=== PATIENT | female | born 1985 | race Caucasian/White ===

== ENCOUNTER 2024-12-22 06:27 | Emergency (ER) | payer MEDICAID, SELFPAY ==
[2024-12-22] VITALS (8 sets, daily range): BP systolic 107–138; BP diastolic 67–78; PULSE 53–68; RESP 13–20; O2SAT 97–100; BMI 22.8
--- NOTE | 2024-12-22 06:34 | ED_ITS ---
HPI - General Adult 2 General: Chief complaint: Vaginal Bleeding Stated complaint: Hemorrhaging Time Seen by Provider: 12/22/24 06:29 History of Present Illness: 39-[facility]. Her last period was a couple of months ago. She complaining of back and pelvic pain. Patient is uncertain if she is at this time Associated symptoms: Reports nausea; Deny chest pain, dyspnea or rash Related Data Home Medications ?Medication ?Instructions ?Recorded ?Confirmed famotidine 20 mg tablet 20 mg PO Q12H PRN 12/22/24 0 12/22/24 indigestion/stomach upset hydroxyzine HCl 50 mg tablet 50 mg PO Q6H PRN Anxiety 12/22/24 12/22/24 loperamide 2 mg capsule See Rx Instructions .Route . COMPLEX 12/22/24 12/22/24 naproxen 500 mg tablet 500 mg PO Q12H PRN Pain 11/3012/22/24 ondansetron 4 mg disintegrating 4 mg PO Q6H PRN Nausea 12/22/24 12/22/24 tablet Previous Rx's ?Medication ?Instructions ?Recorded diclofenac sodium 75 mg 75 mg PO Q12H PRN pain #20 t abs 12/22/24 tablet,delayed release Allergies Allergy/AdvReac Type Severity Reaction Status Date / Time No Known Allergies Allergy Verified 12/22/24 06:36 Review of Systems 2 Const: Denies: fever(s) or chills Card: Denies: chest pain Resp: Denies: dyspnea GI: Reports: abdominal pain, nausea and GI cramping : Reports: vaginal bleeding and pelvic pain; Denies: dysuria, urinary frequency or urinary urgency Musc: Denies: neck pain or back pain Skin/Breast: Denies: rash Physical Exam 2 Const: ORIENTATION/CONSCIOUSNESS: Yes awake, Yes oriented to person, Yes oriented to place and Yes oriented to time HENMT: COMMON NORMALS: normocephalic, atraumatic and hearing grossly normal bilaterally HEAD & SCALP: normocephalic and atraumatic Resp: COMMON NORMALS: normal respiratory effort, No retractions, No use of accessory muscles and clear to auscultation bilaterally AUSCULTATION: clear to auscultation bilaterally Cardio: COMMON NORMALS: regular rate, regular rhythm and No murmurs present (Cardio) RATE: regular rate RHYTHM: regular rhythm GI: COMMON NORMALS: Soft to palpation and No hepatosplenomegaly present A USCULTATION: Yes normoactive bowel sounds PALPATION: Yes Soft to palpation, No Tenderness to palpation present (GI), No Guarding due to palpation present (GI) and Yes No hepatosplenomegaly present : OTHER: Patient placed in dorsolithotomy position with nurse present speculum introduced cervix visualized large amount of blood in the vaginal vault this was removed noted that there was significant tissue in the cervical os this was removed with a ring forceps which decreased bleeding substantially observed for short time no further bleeding. Extremity: COMMON NORMALS: normal to inspection, capillary refill normal, no clubbing, cyanosis or edema, no calf tenderness and no pedal edema Neuro: SENSORIUM/ORIENTATION: Yes oriented to person, Yes oriented to place and Yes oriented to time Skin: COMMON NORMALS: no rashes or lesions noted GENERAL SKIN EXAM: no rashes or lesions noted Course 2 Vital Signs: Vital signs: Vital Signs Pulse Rate 68 12/22/24 13:48 Respiratory Rate 15 12/22/24 09:00 Blood Pressure 107/78 12/22/24 13:48 Pulse Oximetry 98 12/22/24 13:48 Oxygen Delivery Me thod Room Air 12/22/24 10:30 MDM - General Adult Medical Decision Making POC removed from the os this is submitted for pathology. GC and Chlamydia were negative. Ultrasound shows pole with no cardiac activity beta-hCG at 1800 suspect missed spontaneous miscarriage. Tissue removed from the os was submitted for pathology patient did have further bleeding after was removed she was observed for time no further bleeding hemoglobin stable discharge patient home diclofenac as needed for discomfort advised her she will likely have more bleeding she should have repeat hemoglobin but hCG in 2 to 3 days at her primary care doctor after return if she has further problems. Patient was advised if bleeding is greater than 1 pad per hour to return to the emergency room Medical Records I reviewed the patient's medical records. Lab Data I reviewed the patient's lab results. 12/22/24 10:32 12/22/24 06:38 Radiology Impressions Obstetrics Ultrasound 12/22/24 07:05 IMPRESSION: 1. Single intrauterine gestation with no heart beat. Consistent with embryonic demise. 2. Suspect large subchorionic hemorrhage. Scattered heterogeneity surrounding the gestational sac. This may be due to subchorionic bleed or impending spontaneous . Laboratory Results WBC 11.80 10^3/uL (3.29-11.43) H 12/22/24 06:38 RBC 4.36 10^6/uL (3.85-5.65) 12/22/24 06:38 Hgb 12.40 g/dL (11.27-16.99) 12/22/24 10:32 Hct 38.5 % (36-47) 12/22/24 06:38 MCV 88.3 fl (85-98) 12/22/24 06:38 MCH 29.6 pg (27-33) 12/22/24 06:38 MCHC 33.5 g/dL (30-55) 12/22/24 06:38 RDW 12.5 % (12.1-15.1) 12/22/24 06:38 Plt Count 295 10^3/cmm (157-399) 12/22/24 06:38 MPV 9.8 fL (7.4-10.4) 12/22/24 06:38 Neut % (Auto) 85.3 % 12/22/24 06:38 Lymph % (Auto) 10.5 % 12/22/24 06:38 [place] % (Auto) 3.4 % 12/22/24 06:38 Eos % (Auto) 0.1 % 12/22/24 06:38 Baso % (Auto) 0.3 % 12/22/24 06:38 Neut # (Auto) 10.06 10^3/uL (1.8-7.7) H 12/22/24 06:38 Lymph # (Auto) 1.2 10^3/uL (0.8-4.8) 12/22/24 06:38 [place] # (Auto) 0.4 10^3/uL (0.2-0.9) 12/22/24 06:38 Eos # (Auto) 0.0 10^3/uL (0.0-0.8) 12/22/24 06:38 Baso # (Auto) 0.0 10^3/uL (0.0-0.1) 12/22/24 06:38 Nucleated RBC % (auto) 0 % 12/22/24 06:38 Nucleated RBCs # 0.0 /100WBC 12/22/24 06:38 Sodium 138 mmol/L (136-145) 12/22/24 06:38 Potassium 2.9 mmol/L (3.5-5.1) L 12/22/24 06:38 Chloride 102 mmol/L (98-107) 12/22/24 06:38 Carbon Dioxide 18 mmol/L (22-29) L 12/22/24 06:38 Anion Gap 20.9 (5-19) H 12/22/24 06:38 BUN 7 mg/dL (6-20) 12/22/24 06:38 Creatinine 0.5 mg/dL (0.5-0.9) 12/22/24 06:38 GFR Calculation 137.4 mL/min (90-130) H 12/22/24 06:38 Glucose 135 mg/dL (65-115) H 12/22/24 06:38 Calculated Osmolality 286 mOsm/kg (285-295) 12/22/24 06:38 Calcium 9.1 mg/dL (8.5-10.5) 12/22/24 06:38 Magnesium 1.6 mg/dL (1.7-2.3) L 12/22/24 06:38 Total Bilirubin 1.0 mg/dL (0.15-1.2) 12/22/24 06:38 AST 25 U/L (0-32) 12/22/24 06:38 ALT 30 U/L (0-33) 12/22/24 06:38 Alkaline Phosphatase 43 U/L (35-105) 12/22/24 06:38 Total Protein 8.1 g/dL (6.6-8.7) 12/22/24 06:38 Albumin 4.5 g/dL (3.5-5.2) 12/22/24 06:38 Globulin 3.6 g/dL (1.3-4.6) 12/22/24 06:38 HCG, Qual Positive (Negative) H 12/22/24 06:38 Ser , Semi-Qnt 1865.00 mIU/mL 12/22/24 06:28 Urine Color Yellow (Yellow) 12/22/24 06:59 Urine Appearance Cloudy (CLEAR) A 12/22/24 06:59 Urine pH 6.5 (5-7) 12/22/24 06:59 Ur Specific [place] 1.029 (1.005-1.030) 12/22/24 06:59 Urine Protein Trace (Negative) A 12/22/24 06:59 Urine Glucose (UA) Negative (Normal) 12/22/24 06:59 Urine Ketones 3+ (Negative) H 12/22/24 06:59 Urine Blood Negative (Negative) 12/22/24 06:59 Urine Nitrate Negative (Negative) 12/22/24 06:59 Urine Bilirubin Negative (Negative) 12/22/24 06:59 Urine Urobilinogen 1.0 mg/dL (Negative) 12/22/24 06:59 Ur Leukocyte Esterase Trace (Negative) A 12/22/24 06:59 Urine RBC 0-2 /hpf (0-2) 12/22/24 06:59 Urine WBC 11-20 /hpf (0-5) H 12/22/24 06:59 Ur Squamous Epith Cells 11-20 /hpf (0-5) H 12/22/24 06:59 Amorphous Sediment Not Reportable 12/22/24 06:59 Urine Bacteria 4+ /hpf (NONE) H 12/22/24 06:59 Hyaline Casts 22.93 /lpf 12/22/24 06:59 C. trachomatis (PCR) Not detected 12/22/24 06:59 N. gonorrhoeae (PCR) Not detected 12/22/24 06:59 Blood Type A Positive 12/22/24 06:38 Rho(D) Type Rh positive 12/22/24 06:38 Antibody Screen Negative 12/22/24 06:38 All radiology interpretation(s) finalized by discharge Discharge Plan Discharge Patient Disposition: Home Clinical Impression: Spontaneous miscarriage Condition: Stable Prescriptions: New diclofenac sodium 75 mg tablet,delayed release (DR/EC) 75 mg PO Q12H PRN (Reason: pain) Qty: 20 0RF No Action loperamide 2 mg capsule See Rx Instructions .ROUTE .COMPLEX Rx Instructions: TAKE TWO CAPSULES BY MOUTH INITIALLY, THEN TAKE ONE CAPSULE BY MOUTH AFTER EACH LOOSE STOOL UNTIL SYMPTOMS RESOLVE. DO NOT EXCEED FOUR PER DAY. hydroxyzine HCl 50 mg tablet 50 mg PO Q6H PRN (Reason: Anxiety) famotidine 20 mg tablet 20 mg PO Q12H PRN (Reason: indigestion/stomach upset) ondansetron 4 mg tablet,disintegrating 4 mg PO Q6H PRN (Reason: Nausea) naproxen 500 mg tablet 500 mg PO Q12H PRN (Reason: Pain) Discharge Orders: Discharge ED (Routine); Ordered 12/22/24 Ordered By: Dylan Matt Discharge Diet: Usual diet Discharge Activity: Increase activity as tolerated Patient Instructions: Miscarriage (ED), Opioid Safety, Pain Management Activity Restrictions/Additional Instructions: Thank you for choosing [facility] for your healthcare needs today. It is very important that you follow up as instructed or that you return to the Emergency Department should you have concerns or if your condition changes or worsens in any way. You were seen in the emergency room with vaginal bleeding. After evaluation is found that you had been and had miscarried. We did remove some products of conception from the os this should slow the bleeding and decrease the cramping. You will need to have a repeat beta hCG (hormone of ) repeated in approximately 3 days at your primary care doctor's office. If the bleeding resumes and is uncontrollable (greater than 1 pad per hour) return to the emergency room. You are given diclofenac to use as needed for abdominal pain and cramping. If you take the diclofenac do not take any naproxen Aleve ibuprofen Motrin or Advil. Finally you were noted to have a low potassium while you were in the emergency room. You were given supplement for this as well as supplement for magnesium this should be rechecked at your follow-up doctors appointment as well. 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
[2024-12-22] MEDS: tranexamic acid 1,000 MG/100 ML PREMIX 600 MG IV (06:45)
[2024-12-22] MEDS: morphine 4 mg/mL SDV 1 mL 2 MG IVP (06:48)
[2024-12-22] MEDS: ketorolac 30 mg/mL INJ IVP (06:49)
[2024-12-22 06:51] LABS: Basophils % 0.3 %; Eosinophils % 0.1 %; Hematocrit 38.5 % (36-47); Lymphocytes # 1.2 10^3/uL (0.8-4.8); Lymphocytes % 10.5 %; Mean Corpuscular HGB Conc 33.5 g/dL (30-55); Mean Corpuscular Hemoglobin 29.6 pg (27-33); Mean Corpuscular Volume 88.3 fl (85-98); Mean Platelet Volume 9.8 fL (7.4-10.4); Monocytes # 0.4 10^3/uL (0.2-0.9); Monocytes % 3.4 %; Neutrophils # 10.06 10^3/uL (1.8-7.7); Neutrophils % 85.3 %; Nucleated Red Blood Cells % 0 %; Platelet Count 295 10^3/cmm (157-399); Red Blood Count 4.36 10^6/uL (3.85-5.65); Red Cell Distribution Width 12.5 % (12.1-15.1)
[2024-12-22] MEDS: ondansetron 2 mg/ML SDV 2 mL 4 MG IVP (06:51)
[2024-12-22 07:03] LABS: HCG, Serum Qual Positive (Negative)
--- NOTE | 2024-12-22 07:05 | US_ITS ---
WS: [id number] EARLY OBSTETRICAL ULTRASOUND (<14 WEEKS). HISTORY: Vaginal bleeding positive hCG COMPARISON: None available. Single intrauterine gestational sac is identified. There is a crown-rump length measuring 1.7 cm corresponding to gestation of 8 weeks and 1 day. There is no cardiac activity. No movement. Slight elevation of the adjacent amnion. Gestational sac measurement consistent with an age of 8 weeks and 5 days. Heterogeneity surrounding the sac is most consistent with a large subchorionic bleed. No free fluid. Neither ovary is identified. US/US OB <=14 wk fetus w transvag IMPRESSION: 1. Single intrauterine gestation with no heart beat. Consistent with emb ryonic demise. 2. Suspect large subchorionic hemorrhage. Scattered heterogeneity surrounding the gestational sac. This may be due to subchorionic bleed or impending spontan eous .
[2024-12-22 07:11] LABS: Alanine Aminotransferase 30 U/L (0-33); Albumin Level 4.5 g/dL (3.5-5.2); Alkaline Phosphatase 43 U/L (35-105); Anion Gap 20.9 (5-19); Aspartate Amino Transferase 25 U/L (0-32); Blood Urea Nitrogen 7 mg/dL (6-20); Calcium 9.1 mg/dL (8.5-10.5); Carbon Dioxide 18 mmol/L (22-29); Chloride 102 mmol/L (98-107); Creatinine Clr Calc Pharmacy 125.7693; Globulin 3.6 g/dL (1.3-4.6); Glomerular Filtration Rate 137.4 mL/min (90-130); Glucose 135 mg/dL (65-115); Osmolality Calculated 286 mOsm/kg (285-295); Sodium 138 mmol/L (136-145); Total Protein 8.1 g/dL (6.6-8.7)
[2024-12-22 07:20] LABS: Potassium 2.9 mmol/L (3.5-5.1)
[2024-12-22] MEDS: potassium chloride premix 100 ML 25 MEQ IV (07:47)
[2024-12-22 07:56] LABS: Magnesium 1.6 mg/dL (1.7-2.3)
[2024-12-22 08:03] LABS: Bilirubin Urine Negative (Negative); Blood Urine Negative (Negative); Glucose Urine UA Negative (Normal); Ketones Urine 3+ (Negative); Leukocyte Esterase Urine Trace (Negative); Nitrate Urine Negative (Negative); Protein Urine Trace (Negative); Specific Gravity, Urine 1.029 (1.005-1.030); Urine Appearance Cloudy (CLEAR); Urine Color Yellow (Yellow); pH Urine 6.5 (5-7)
[2024-12-22 08:06] LABS: Add Urine Microscopic? YES; Bacteria Urine 4+ /hpf; Hyaline Casts Urine 22.93 /lpf; RBC Urine 0-2 /hpf (0-2)
--- NOTE | 2024-12-22 08:08 | ECG_ITS ---
[facility] Date: 2024-12-22 Pat Name: Nadya Low Department: Room: Gender: Female Program Services Assistant: : 1985 Requested By: Dylan Roach Order Number: [id number] Camille MD: Mignon Song M.D. Measurements Intervals [place] Rate: 49 P: 56 WA: 110 QRS: 77 QRSD: 86 T: 76 QT: 538 QTc: 488 Interpretive Statements SINUS BRADYCARDIA WITH SHORT WA INTERVAL PROLONGED QT INTERVAL CRITICAL TEST RESULT No previous ECG available for comparison Electronically Signed On 12-22-2024 21:02:33 CDT by Mignon Song M.D. [email or web address]
[2024-12-22 08:18] LABS: UA Slide Review UA Slide Review Perf
[2024-12-22] MEDS: magnesium sulfate premix 2 GM/50 ML PIGGYBACK IV (08:44)
--- NOTE | 2024-12-22 10:41 | ECG_ITS ---
[facility] Date: 2024-12-22 Pat Name: Nadya Low Department: Room: Gender: Female Labor Economist: : 1985 Requested By: Dylan Roach Order Number: [id number] Camille MD: Mignon Song M.D. Measurements Intervals [place] Rate: 63 P: 70 DC: 114 QRS: 80 QRSD: 84 T: 71 QT: 441 QTc: 452 Interpretive Statements SINUS RHYTHM WITH SINUS ARRHYTHMIA WITH SHORT DC INTERVAL POSSIBLE LEFT ATRIAL ENLARGEMENT [-0.1mV P-WAVE IN V1/V2] Compared to ECG 12/22/2024 08:08:22 Sinus bradycardia no longer present Prolonged QT interval no longer present Electronically Signed On 12-22-2024 21:00:56 CDT by Mignon Song M.D. [email or web address]
[2024-12-22] MEDS: potassium chloride oral liq 20 mEq/15 mL UDC 40 MEQ PO (11:35)
[2024-12-22 12:32] LABS: Chlamydia Trachomatis NOT DETECTED; Neisseria Gonorrhea NOT DETECTED
== END 2024-12-22 13:49 | disposition home or self-care (01) ==
PROVIDERS: Emergency Provider Family Medicine
DX: O03.9 Complete or unspecified spontaneous abortion without complication (principal)
CPT/HCPCS: 36415; 76801; 76817; 80053; 81001; 83735; 84702; 84703; 85018; 85025; 86850; 86900; 87210; 87491; 87591; 88305; 93005; 96365; 96366; 96367; 96375; 99285; J1885; J2270; J2405; J3475; J3480; J9999

== ENCOUNTER 2025-04-03 22:47 | Inpatient (IN) | payer MEDICAID, SELFPAY ==
--- OUTSIDE RECORDS SUMMARY | 2024-12-11 03:40 | XMS_ITS ---
Author Organization [facility] Address [address] [address] Care Team Providers Care Mrb Engineer Name Role Phone ( [facility] ), PHYSICIAN NOT IDENTIFIED Primary Care Provider Unavailable Samia Nunez Unavailable [phone] Chase Zacarias Unavailable [phone] REASON FOR VISIT Establish care Social History Sex Assigned At : Social History Observation Description Sex Assigned At Female Encounters Encounter Location Date Provider Diagnosis 18[facility] [address] [address] 12/11/2024 Chase Zacarias Plan Of Treatment No Information Progress Notes * David WHITEB: 985 (40 yo F)Acc No.[id number]:12/11/2024 Progress Notes Patient: Naday Tavares Provider: TJ Alvarez :1985 A ge:39 Y S ex:Female Date:12/11/2024 Address:[address] [place], [place] [id number] Pcp:PHYSICIAN NOT IDENTIFIED ( [facility] ) Subjective: * Chief Complaints: * E stablish care Billing Information: * Procedure Codes: * Electronic signature of TJ Patterson on 04/03/2025 at 10:59 PM CDT Sign off status: Pending * Provider: TJ Alvarez Date: 0 12/11/2024 Generated for Printi ng/Faxing/eTransmitting on: 0 04/03/2025 10:59 PM CDT
--- OUTSIDE RECORDS SUMMARY | 2025-04-03 22:59 | XMS_ITS | Patient Health Record ---
Author Organization [facility] Address [address] [place] [address] Care Team Providers Care Oracle Database Analyst Name Role Phone ( [facility] ), PHYSICIAN NOT IDENTIFIED Primary Care Provider Unavailable Samia Nunez Unavailable [phone] Chase Zacarias Unavailable [phone] Samia Ackerman Unavailable [phone] Ibrahima Feng Unavailable [phone] Allergies No Known Allergies Results Component Value Reference Range Flag Notes [employer] Results Reviewed date:12/01/2024 06:50:49 PM Interpretation: Performing Lab:[id number] [facility], [address] [address] [facility] [address] Zulema Polanco MD Notes/Report: yl: Fentanyl Negative. l fentanyl: Fentanyl Negative. Carfentanil: Fentanyl Negative. Para-fluorofentan Acetyl fentanyl: Fentanyl Negative. Acetyl norfentanyl: Fentanyl Negative. Acry Codeine Quantification negative 50 ng/mL N Morphine Quantification negative 50 ng/mL N Hydrocodone Quantification negative 50 ng/mL N Norhydrocodone Quantification negative 50 ng/mL N Hydromorphone Quantification negative 50 ng/mL N Oxycodone Quantification negative 50 ng/mL N Noroxycodone Quantification negative 50 ng/mL N Oxymorphone Quantification negative 50 ng/mL N Buprenorphine Quantification positive-165.788 5 ng/mL N Norbuprenorphine Quantification positive-735.160 20 ng/mL N Fentanyl Quantification negative 1 ng/mL N Norfentanyl Quantification negative 8 ng/mL N Methadone Quantification negative 100 ng/mL N EDDP (Methadone metabolite) Quantification negative 100 ng/mL N Tramadol Quantification negative 100 ng/mL N A-yalbocdfx-isaemwox Quantification negative 100 ng/mL N J-Ujkqdsxcg-Kygermcc Quantification negative 100 ng/mL N Tapentadol Quantification negative 50 ng/mL N Meperidine Quantification negative 50 ng/mL N Normeperidine Quantification negative 50 ng/mL N Alpha-Hydroxyalprazolam Quantification negative 20 ng/mL N 6-Myhnz-Qinqjhavra Quantification negative 20 ng/mL N Lorazepam Quantification negative 40 ng/mL N Nordiazepam Quantification negative 40 ng/mL N Temazepam Quantification negative 50 ng/mL N Oxazepam Quantification negative 40 ng/mL N Amphetamine Quantification negative 100 ng/mL N Methylphenidate Quantification negative 50 ng/mL N Ritalinic Acid Quantification negative 50 ng/mL N Gabapentin Quantification negative 1000 ng/mL N Ketamine Quantification negative 50 ng/mL N Norketamine Quantification negative 50 ng/mL N Naltrexone Quantification negative 10 ng/mL N Naltrexol Quantification negative 10 ng/mL N Naloxone Quantification positive-397.638 20 ng/mL N Pentobarbital Quantification negative 200 ng/mL N Phenobarbital Quantification negative 200 ng/mL N Secobarbital Quantification negative 200 ng/mL N Butalbital Quantification negative 200 ng/mL N Levorphanol / Dextrorphan Quantification negative 50 ng/ mL N Phentermine Quantification negative 50 ng/mL N Methamphetamine Quantification negative 100 ng/mL N Cocaine metabolite Quantification negative 50 ng/mL N cTHC (Marijuana metabolite) Quantification negative 15 ng/mL N MDMA Quantification negative 100 ng/mL N 6-MAXIM (Heroin metabolite) Quantification negative 10 ng/ mL N Phencyclidine Quantification negative 10 ng/mL N Acetyl fentanyl Quantification Fen Neg 2 ng/mL N Acetyl norfentanyl Quantification Fen Neg 5 ng/mL N Acryl fentanyl Quantification Fen Neg 1 ng/mL N Carfentanil Quantification Fen Neg 2 ng/mL N Para-fluorofentanyl Quantification Fen Neg 1 ng/mL N 2-methyl AP-237 Quantification negative 10 ng/mL N Brorphine Quantification negative 15 ng/mL N Metonitazene Quantification negative 5 ng/mL N 8-aminoclonazolam Quantification negative 10 ng/mL N Etizolam Quantification negative 10 ng/mL N Alpha-hydroxyetizolam Quantification negative 10 ng/mL N Flualprazolam Quantification negative 10 ng/mL N Flubromazolam Quantification negative 10 ng/mL N TBX448 metabolite Quantification negative 10 ng/mL N OYQ469 metabolite Quantification negative 10 ng/mL N RCS4 metabolite Quantification negative 10 ng/mL N XLR11/UR144 metabolite negative 10 ng/mL N 5F-ADB-M7 negative 10 ng/mL N ZL-LQQLIBBC-T2 negative 10 ng/mL N VJMY-NBGLGCTV-J2 negative 10 ng/mL N Eutylone Quantification negative 10 ng/mL N Methylone Quantification negative 3 ng/mL N Xylazine Quantification negative 10 ng/mL N 4-hydroxy Xylazine Quantification negative 10 ng/mL N Mitragynine (Kratom alkaloid ) Quantification negative 1 ng/mL ng/mL N 1-QL-Nmycursmgyp (Kratom alk aloid) Quantification negative 1 ng/mL ng/mL N ETHANOL negative 20 mg/dL mg/dL N Ethyl Glucuronide Quantification negative 500 ng/mL N Ethyl Sulfate Quantification negative 500 ng/mL N CREATININE normal-68.5 >20 mg/dL mg/dL N OXIDANT normal-0 <200 ug/mL ug/mL N PH normal-6.3 4.5 - 9.5 N SPECIFIC GRAVITY normal-1.012 1.003 - 1.035 N Reason For Referral No Information Medications Medication SIG (Take, Route, Fr equency, Duration) Notes Start Date End Date Status Suboxone 8-2 MG Film 1 film under the to ngue and allow to dissolve Sublingual three times a days; Duration: 14 days 11/24/2024 Active Social History Tobacco Use: Social History Observation Description Date Details (start date - stop date) Current Smoker NA - NA Sex Assigned At : Social History Observation Description Sex Assigned At Female Social History Social Determinants Social Info Question Answer Notes PRAPARE Date Completed/Updated: 11/05/2024 What is your current housing situation? I have h ousing Are you worried about losing your housing? No What is the highest level of school that you have finished? High school diploma or GED What is your current work situation? Unemployed and seeking work In the past year, have you o r any family members you live with been unable to get any of the following when it was really needed? Check all that apply Medicine or any health care (medical, dental, mental health or vision) Has lack of transportation k ept you from medical appointments, meetings, work or from getting things needed for daily living? No How often do you see or talk to people that you care about and feel close to? (For example: talking to friends on the phone, visiting friends or family, going to buddhist or club meetings) Less than once a week How stressed are you? Stress is when someone feels tense, nervous, anxious, or cant sleep at night because their mind is troubled Very much In the past year have you sp ent more than 2 nights in a row in a mcfp, fci, retirement center, or juvenile correctional facility? No Are you a refugee? No What country are you from? [place] Do you feel physically and e motionally safe where you currently live? Yes In the past year, have you b een afraid of your partner or ex-partner? No PRAPARE Score: 9 Drug/Alcohol: Social Info Question Answer Notes SBIRT (2018 Edition) Patient refused/dec lined SBIRT screening at this time? No 1. How often do you have a drink containing alcohol? 4 or more times a week 2. How many drinks containing alcohol do you have on a typical day when you are drinking? 1 or 2 3. How often do you have five or more drinks on one occasion? Never SCORE 4 Interpretation Positive How many times in the past year have you used an illegal drug or used a prescription medication for non-medical reasons? 1 or more Total Count 10 Interpretation Positive Tobacco Use: Social Info Question Answer Notes Tobacco Control (Standard) Tobacco use: Current smoker How many cigarettes a day do you smoke? 5 or less Are you an ENDS user: Are you an other tobacco user? Y es Problems Problem Type SNOMED Code ICD Code Onset Dates Problem Status W/U Status Risk Notes Problem Opioid dependenc e, uncomplicated (F11.20) Active confirmed Vital Signs Heart Rate 88 /min 11/24/2024 Temperature 98.0 degrees Fahrenheit 11/24/2024 Height-cm 157.48 cm 11/24/2024 Oximetry 99 % 11/24/2024 Blood pressure diastolic 70 mm Hg 11/24/2024 Weight-kg 52.16 kg 11/24/2024 Height 62 in 11/24/2024 Blood pressure systolic 132 mm Hg 11/24/2024 Weight 115 lbs 11/24/2024 BMI 21.03 kg/m2 11/24/2024 Encounters Encounter Location Date Provider Diagnosis 18 [facility] [address] [place] [address] 11/05/2024 Feng Alexandra Opioid dependence, uncomplicated F11.[address] [place] [address] [address] [place] [address] 11/05/2024 Feng [facility]andra [facility] [address] [place] [address] 11/24/2024 Samia Nunez Opioid dependence, uncomplicated F11.[address] [place] [address] [address] [place] [address] 12/08/2024 Samia Nunez Assessments Encounter Date Diagnosis (ICD Code) Assessment Notes Treatment Notes Treatment Clinical Notes Section Notes 11/05/2024 Opioid dependence, uncomplicated (ICD-10 - F11.20) Pt was given a 2 week appt to est care and have them take over her Suboxone care and possibly treat her for Hep C. Stable at time of d/c no evidence of distress. is considering the shot/ injectable suboxone- will discuss at PCP appt. Informational pamplets given. 11/24/2024 Opioid dependence, uncomplicated (ICD-10 - F11.20) Pt was discharged to home in no distress, is to continue Suboxone as prescribed, stable on current dose, the importance of compliance discussed, medication is not to diverted, Pt. to bring in medication bottle with her at each visit. No SI/HI upon d/c. F/u in 1 month Plan Of Treatment No Information Insurance Providers Payer Name Payer Address Payer Phone Subscriber Number Group Number Insured Name Patient Relationship to Insured Coverage Start Date Coverage End Date [facility] [address] [place] [address] [id number] Nadya Low Self - patient is the insured Medical (General) History Medical History History ICD Code Substance use disorder Hepatitis C
--- OUTSIDE RECORDS SUMMARY | 2025-04-03 23:00 | XMS_ITS | Clinical Summary ---
Author Organization [facility] Address [address] [place]: Epic Prelude ADT [place] [address] Care Team Providers Care Culture Room Worker Name Role Phone Jose Cash MD Primary Care Provider [phone] Allergies No known active allergies Medications diclofenac sodium (VOLTAREN) 75 mg Tablet, Delayed Release (E.C.) Take 75 mg by mouth 2 times daily as needed. 12/22/2024 Active buprenorphine-n alOXone (Suboxone) 8-2 mg filmIndications :Fentanyl use disorder, moderate, in early remission (CMS/HCC) Place 1 Strip under tongue 3 times daily. Once dissolved, rinse mouth with water & swallow. Wait at least 1 hour before brushing teeth. 90 Film 2 12/31/2024 Active ferrous sulfate 325 mg (65 mg iron) tablet Take 1 Tablet (325 mg) by mouth daily. 30 Tablet 3 12/29/2024 Active sertraline (ZOLOFT) 25 mg tabletIndicatio ns:LUCIA (generalized anxiety disorder) Take 1 Tablet (25 mg) by mouth daily. 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 Bacteremia MRSA 12/18/2008 Pneumonia 12/18/2008 IVDU (intravenous drug user) 12/18/2008 Depression Overview (01/27/2021): not currently medicated Anemia Overview (01/27/2021): no transfusion hx Anxiety Encounters Date Type Department Care Team Description 03/18/2025 External Device Data [facility] ABSTRACTION Provider, Abstract 03/03/2025 External Device Data [facility] ABSTRACTION Provider, Abstract 03/03/2025 External Device Data [facility] ABSTRACTION Provider, Abstract 02/19/2025 External Device Data [facility] ABSTRACTION Provider, Abstract 01/27/2025 8:00 AM CDT Procedure visit [address] [address] 01/14/2025 8:05 AM CDT Procedure visit [address] [address] 01/11/2025 Results Follow-Up [address] [address] Jose Cash MD [facility] 01/07/2025 Results Follow-Up [facility] [address] [phone] Jose Cash MD HCG QUANTITATIVE, BLOOD, HCG QUANTITATIVE, BLOOD, HCG QUANTITATIVE, BLOOD 01/06/2025 9:00 AM CDT Office Visit [address] [address] Jose Cash MD LUCIA (generalized anxiety disorder) (Primary Dx); Miscarriage; Fentanyl use disorder, moderate, in early remission (CMS/HCC) 01/06/2025 Orders Only Initial Department [address] [place]: [place] [address] Provider, Historical from Last 3 Months Immunizations Immunization Administration Dates Next Due Hepatitis A Vaccine 06/15/2003 Family History Medical History Relation Name Comments Hypertension Father Breast Cancer Mother Kidney Disease Mother stones Other Mother fibromyalgia Relation Name Status Comments Father Alive Mother Alive Social History Tobacco Use Types Packs/Day Years Used Date Smoking Tobacco: Every Day Cigarettes Smokeless Tobacco: Never Tobacco Cessation:Ready to Q uit: Not Asked; Counseling Given: Not Answered Alcohol Use Standard Drinks/Week Comments Not Currently 1.7 (1 standard drink = 0.6 oz p ure alcohol) Feeling Safe Answer Date Recorded Are you in a relationship wi th someone who hurts you emotionally and/or physically? 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 Gender Identity Not on file Sexual Orientation Not on file Last Filed Vital Signs Vital Sign Reading Time Taken Comments Blood Pressure 106/56 01/06/2025 9:06 AM CDT Pulse 110 01/06/2025 9:06 AM CDT Temperature 36.4 C (97.6 F) 01/06/2025 9:06 AM CDT Respiratory Rate 16 01/06/2025 9:06 AM CDT Oxygen Saturation 99% 01/06/2025 9:06 AM CDT Inhaled Oxygen Concentration - - Weight 51.2 kg (112 lb 12.8 oz) 01/06/2025 9:06 AM CDT Height 157.5 cm (5' 2 ) 01/06/2025 9:06 AM CDT Body Mass Index 20.63 01/06/2025 9:06 AM CDT Plan of Treatment Upcoming Encounters Date Type Department Care Team (Late st Contact Info) Description 05/11/2025 3:40 PM CDT Office Visit [facility] [address] [address] Jose Cash MD [address] [place] [phone] Health Maintenance Due Date Last Done Comments DTAP/TDAP/TD VACCINES (6 - Tdap) 1996 05/24/1990, 04/10/1989, 10/08/1987, Additional history exists HEPATITIS B VACCINES (1 of 3 - 19+ 3-dose series) 2004 Preventative Visit-Managed Medicaid 2004 HPV/Cotest (21-29) 2006 CERVICAL CANCER SCREENING 2015 HPV/Cotest (30-65) 2015 PAP SMEAR 2015 BREAST CANCER SCREENING 2025 02/15/2018, 02/15 INFLUENZA VACCINE (#1) 2025 12/25/2024 HPV VACCINES Aged Out No longer eligi ble based on patient's age to complete this topic Procedures Procedure Name Priority Date/Time Associated Diagnosis Comments HCG QUANTITATIVE, BLOOD Routine 01/27/2025 8:09 AM CDT Miscarriage HCG QUANTITATIVE, BLOOD Routine 01/14/2025 8:14 AM CDT Miscarriage HCG QUANTITATIVE, BLOOD Routine 01/06/2025 9:42 AM CDT Miscarriage [facility] Routine 01/06/2025 9:37 AM CDT from Last 3 Months Results * HCG QUANTITATIVE, BLOOD (01/27/2025 8:09 AM CDT) Only the most recent of3 resultswithin the time period is included. HCG QUANT, BLOOD <5 mIU/mL [facility] Comment: Gestational Age Expected hCG values (mIU/mL) <1 Week: 5-50 1-2 Weeks: 50-500 2-3 Weeks: 100-5000 3-4 Weeks: 500-80736 4-5 Weeks: 1000-59201 5-6 Weeks: [address] 6-8 Weeks: [address] 2-3 Months: [address] The table above provides only a very rough estimate of gestational age and should be used only in conjunction with other methods for establishing gestational age. Much more reliable and accurate estimations of gestational age may be obtained by using LMP or ultrasound. Values from different assay methods may vary. The use of this assay to monitor or to diagnose patients with cancer or any condition unrelated to has not been cleared or approved by the FDA or the wirer passenger car of the assay. Test Performed at: [facility] [address] [place] [address] Brian Gaxiola MD Blood 01/27/2025 8:09 AM CDT 01/27/2025 8:09 AM CDT us Jose Cash MD CHEMISTRY ORDERABLES Final Resul t [facility] [phone] [facility] [address] [facility] [place] [address] * (ABNORMAL) [facility] (01/06/2025 9:37 AM CDT) [facility] AMPHETAMINES, ORAL FLUID NEGATIVE <10 ng/mL [facility] BARBITURATES, ORAL FLUID NEGATIVE <10 ng/mL [facility] BENZODIAZEPINES, ORAL FLUID NEGATIVE <0.50 ng/mL [facility] BUPRENORPHINE, ORAL FLUID POSITIVE(A) <0.10 ng/mL [facility] BUPRENORPHINE CONFIRMATION, ORAL FLUID >25.00(H) <0.10 ng/mL [facility] NALOXONE CONFIRMATION, ORAL FLUID 14.29(H) <0.25 ng/mL [facility] NORBUPRENORPHINE CONFIRMATION, ORAL FLUID 2.61(H) <0.50 ng/mL [facility] Comment: Norbuprenorphine is a metabolite of buprenorphine. COCAINE, ORAL FLUID NEGATIVE <5.0 ng/mL [facility] FENTANYL, ORAL FLUID NEGATIVE <0.10 ng/mL [facility] HEROINMETABOLITE, ORAL FLUID NEGATIVE <1.0 ng/mL [facility] MARIJUANA, ORAL FLUID NEGATIVE <2.5 ng/mL [facility] MDMA, ORAL FLUID NEGATIVE <10 ng/mL [facility] MEPROBAMATE, ORAL FLUID NEGATIVE <2.5 ng/mL [facility] METHADONE, ORAL FLUID NEGATIVE <5.0 ng/mL [facility] NICOTINEMETABOLITE, ORAL FLUID NEGATIVE <5.0 ng/mL [facility] OPIATES, ORAL FLUID NEGATIVE <2.5 ng/mL [facility] PHENCYCLIDINE, ORAL FLUID NEGATIVE <10 ng/mL [facility] [facility] TAPENTADOL, ORAL FLUID NEGATIVE <5.0 ng/mL [facility] [facility] TRAMADOL, ORAL FLUID NEGATIVE <5.0 ng/mL [facility] [facility] ZOLPIDEM, ORAL FLUID NEGATIVE <5.0 ng/mL [facility] Comment: For additional information, please refer to http://Baynetwork.Telvent Git/faq/UPV328 (This link is being provided for informational/ educational purposes only.) This drug testing is for medical treatment only. Analysis was performed as non-forensic testing and these results should be used only by healthcare providers to render diagnosis or treatment, or to monitor progress of medical conditions. For assistance with interpreting these drug results, please contact a [facility]ist: [phone] ( ), M-F, 8am-6pm EST. These tests were developed and their analytical performance characteristics have been determined by [facility]. They have not been cleared or approved by the FDA. These assays have been validated pursuant to the CLIA regulations and are used for clinical purposes. ALCOHOL METABOLITE NEGATIVE <25 ng/mL [facility] Comment: For additional information, please refer to http://Baynetwork.BlueRoads/faq/UXW687 (This link is being provided for informational/ educational purposes only.) This drug testing is for medical treatment only. Analysis was performed as non-forensic testing and these results should be used only by healthcare providers to render diagnosis or treatment, or to monitor progress of medical conditions. For assistance with interpreting these drug results, please contact a [facility]ist: [phone] ( ), M-F, 8am-6pm EST. These tests were developed and their analytical performance characteristics have been determined by [facility]. They have not been cleared or approved by the FDA. These assays have been validated pursuant to the CLIA regulations and are used for clinical purposes. Test Performed at: [facility] [address] [place], [place] Zia Dillon M.D.,PhD 01/06/2025 9:37 AM CDT 01/07/2025 5:37 AM CDT Narrative [facility] - 01/10/2025 2:56 PM CDT This unsolicited order was created by [facility]. The YPlan Name and Code for this order is: CP [id number] [[id number]] us Jose Cash MD CHEMISTRY ORDERABLES Final Resul t [facility] [phone] [facility] [address] [place], [place] from Last 3 Months Insurance [facility] [employer] MEDICAID Care Teams Culture Room Worker Relationship Specialty Start Date End Date Jose Cash MD [address] [place] [phone] PCP - General Family Practice 12/25/24
[2025-04-03 23:08] VITALS: BP 118/78; PULSE 94; RESP 14; TEMP 36.7; O2SAT 98; BMI 20.5
[2025-04-04] VITALS (8 sets, daily range): BP systolic 114–133; BP diastolic 74–85; PULSE 79–99; RESP 14–18; TEMP 36.8–37.1; O2SAT 95–97; BMI 23.6
--- NOTE | 2025-04-04 00:22 | ECG_ITS ---
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
--- NOTE | 2025-04-04 00:34 | W.ED.GENADLT ---
HPI - General Adult General: Chief complaint: General Medical Stated complaint: Wants to detox Time Seen by Provider: 04/04/25 00:13 History of Present Illness: Patient states that she is an alcoholic and has been drinking heavily for the past 3 months. She states that she had a miscarriage in December and this set her off and the drinking heavy. She states that she drinks 30+ shots of alcohol a day. She is here to request detox. She states that she has had alcohol withdrawal seizures in the past. States her last drink was about 5 hours ago. Related Data Home Medications ?Medication ?Instructions ?Recorded ?Confirmed famotidine 20 mg tablet 20 mg PO Q12H PRN 12/22/24 12/22/24 indigestion/stomach upset hydroxyzine HCl 50 mg tablet 50 mg PO Q6H PRN Anxiety 12/22/24 12/22/24 loperamide 2 mg capsule See Rx Instructions .Route .COMPLEX 12/22/24 12/22/24 naproxen 500 mg tablet 500 mg PO Q12H PRN Pain 12/22/24 12/22/24 ondansetron 4 mg disintegrating 4 mg PO Q6H PRN Nausea 12/22/24 12/22/24 tablet Previous Rx's ?Medication ?Instructions ?Recorded diclofenac sodium 75 mg 75 mg PO Q12H PRN pain #20 tabs 12/22/24 tablet,delayed release Allergies Allergy/AdvReac Type Severity Reaction Status Date / Time No Known Allergies Allergy Verified 04/03/25 23:12 [facility] Female Reproductive History: Date of last menstrual period: 03/31/25 Physical Exam Const: COMMON NORMALS: patient oriented x3 Neck/C-Spine: COMMON NORMALS: no JVD Resp: COMMON NORMALS: normal respiratory effort, No retractions, No use of accessory muscles, clear to auscultation bilaterally and percussion normal AUSCULTATION: clear to auscultation bilaterally PERCUSSION: percussion normal Cardio: COMMON NORMALS: no JVD, regular rate, regular rhythm, S1 normal heart sound present, S2 normal heart sound present, No gallops present (Cardio), No clicks present (Cardio), No murmurs present (Cardio), No rub (Cardio) and Peripheral pulses 2+ throughout RATE: regular rate RHYTHM: regular rhythm HEART SOUNDS: S1 normal heart sound present and S2 normal heart sound present PERIPHERAL PULSES: Peripheral pulses 2+ throughout GI: COMMON NORMALS: Normal to inspection, nondistended, normoactive bowel sounds present, Soft to palpation, non-tender, No hepatosplenomegaly present, no masses and no bruits PALPATION: Yes Soft to palpation and Yes No hepatosplenomegaly present Neuro: COMMON NORMALS: patient oriented x3, moves all extremities, no focal motor deficits and no sensory deficits noted Psych: OTHER: Alcoholic. Denies suicidal or homicidal ideation. Course Vital Signs: Vital signs: Vital Signs Temperature 98.0 F 04/03/25 23:08 Pulse Rate 94 04/03/25 23:08 Respiratory Rate 14 04/03/25 23:08 Blood Pressure 118/78 04/03/25 23:08 Pulse Oximetry 98 04/03/25 23:08 Oxygen Delivery Me thod Room Air 04/03/25 23:08 MDM - General Adult Medical Decision Making Patient with history of alcohol abuse especially over the past 3 months. Here requesting alcohol detox. States she has had seizures trying to come off of alcohol before in the past. Will admit patient to the hospitalist for IV fluids and benzodiazepines to prevent alcohol withdrawal seizures. Discussed with hospitalist for admission. Lab Data 04/04/25 01:49 04/04/25 01:20 Laboratory Results WBC 4.94 10^3/uL (3.29-11.43) 04/04/25 01:49 Corrected WBC Cancelled 04/04/25 01:20 RBC 4.17 10^6/uL (3.85-5.65) 04/04/25 01:49 Hgb 12.10 g/dL (11.27-16.99) 04/04/25 01:49 Hct 37.3 % (36-47) 04/04/25 01:49 MCV 89.4 fl (85-98) 04/04/25 01:49 MCH 29.0 pg (27-33) 04/04/25 01:49 MCHC 32.4 g/dL (30-55) 04/04/25 01:49 RDW 13.4 % (12.1-15.1) 04/04/25 01:49 Plt Count 204 10^3/cmm (157-399) 04/04/25 01:49 MPV 9.3 fL (7.4-10.4) 04/04/25 01:49 Gran % Cancelled 04/04/25 01:20 Neut % (Auto) 52.3 % 04/04/25 01:49 Lymph % (Auto) 35.6 % 04/04/25 01:49 [place] % (Auto) 7.9 % 04/04/25 01:49 Eos % (Auto) 2.8 % 04/04/25 01:49 Baso % (Auto) 1.0 % 04/04/25 01:49 Neut # (Auto) 2.58 10^3/uL (1.8-7.7) 04/04/25 01:49 Lymph # (Auto) 1.8 10^3/uL (0.8-4.8) 04/04/25 01:49 [place] # (Auto) 0.4 10^3/uL (0.2-0.9) 04/04/25 01:49 Eos # (Auto) 0.1 10^3/uL (0.0-0.8) 04/04/25 01:49 Baso # (Auto) 0.1 10^3/uL (0.0-0.1) 04/04/25 01:49 Absolute Gran (auto) Cancelled 04/04/25 01:20 Nucleated RBC % (auto) 0 % 04/04/25 01:49 Nucleated RBCs # 0.0 /100WBC 04/04/25 01:49 Sodium 140 mmol/L (136-145) 04/04/25 01:20 Potassium 4.2 mmol/L (3.5-5.1) 04/04/25 01:20 Chloride 101 mmol/L (98-107) 04/04/25 01:20 Carbon Dioxide 24 mmol/L (22-29) 04/04/25 01:20 Anion Gap 19.2 (5-19) H 04/04/25 01:20 BUN 8 mg/dL (6-20) 04/04/25 01:20 Creatinine 0.5 mg/dL (0.5-0.9) 04/04/25 01:20 GFR Calculation 136.6 mL/min (90-130) H 04/04/25 01:20 Glucose 94 mg/dL (65-115) 04/04/25 01:20 Calculated Osmolality 288 mOsm/kg (285-295) 04/04/25 01:20 Calcium 8.8 mg/dL (8.5-10.5) 04/04/25 01:20 Magnesium 2.0 mg/dL (1.7-2.3) 04/04/25 01:20 Total Bilirubin 0.3 mg/dL (0.15-1.2) 04/04/25 01:20 AST 101 U/L (0-32) H 04/04/25 01:20 ALT 73 U/L (0-33) H 04/04/25 01:20 Alkaline Phosphatase 63 U/L (35-105) 04/04/25 01:20 Total Protein 7.7 g/dL (6.6-8.7) 04/04/25 01:20 Albumin 4.3 g/dL (3.5-5.2) 04/04/25 01:20 Globulin 3.4 g/dL (1.3-4.6) 04/04/25 01:20 HCG, Qual Negative (Negative) 04/04/25 01:28 Urine Color Yellow (Yellow) 04/04/25 01:28 Urine Appearance Clear (CLEAR) 04/04/25 01:28 Urine pH 6.0 (5-7) 04/04/25 01:28 Ur Specific [place] 1.013 (1.005-1.030) 04/04/25 01:28 Urine Protein Negative (Negative) 04/04/25 01:28 Urine Glucose (UA) Negative (Normal) 04/04/25 01:28 Urine Ketones Negative (Negative) 04/04/25 01:28 Urine Blood Negative (Negative) 04/04/25 01:28 Urine Nitrate Negative (Negative) 04/04/25 01:28 Urine Bilirubin Negative (Negative) 04/04/25 01:28 Urine Urobilinogen 0.2 mg/dL (Negative) 04/04/25 01:28 Ur Leukocyte Esterase Negative (Negative) 04/04/25 01:28 Urine RBC 0-2 /hpf (0-2) 04/04/25 01:28 Urine WBC 0-5 /hpf (0-5) 04/04/25 01:28 Ur Squamous Epith Cells 0-5 /hpf (0-5) 04/04/25 01:28 Amorphous Sediment Not Reportable 04/04/25 01:28 Urine Bacteria 2+ /hpf (NONE) H 04/04/25 01:28 Hyaline Casts 0-4 /lpf H 04/04/25 01:28 Salicylates < 0.3 mg/dL (3-10) L 04/04/25 01:20 Urine Opiates Screen Negative ng/mL (Negative) 04/04/25 01:28 Acetaminophen < 5.0 ug/mL (10-30) L 04/04/25 01:20 Ur Barbiturates Screen Negative ng/mL (Negative) 04/04/25 01:28 Ur Phencyclidine Scrn Negative ng/mL (Negative) 04/04/25 01:28 Ur Amphetamines Screen Negative ng/mL (Negative) 04/04/25 01:28 U Benzodiazepines Scrn Negative ng/mL (Negative) 04/04/25 01:28 Urine Cocaine Screen Negative ng/mL (Negative) 04/04/25 01:28 U Marijuana (THC) Screen Negative ng/mL (Negative) 04/04/25 01:28 Ethyl Alcohol 169 mg/dL (0-10) H 04/04/25 01:20 No radiology studies performed this visit Discharge Plan Discharge Patient Disposition: Admitted As Inpatient Clinical Impression: Alcohol abuse Condition: Stable Coding Level of Care Code ED Data Management Manager for Melonie White
[2025-04-04 01:34] LABS: Glucose Urine UA Negative (Normal); HCG Qualitative Urine. Negative (Negative); Nitrate Urine Negative (Negative); Specific Gravity, Urine 1.013 (1.005-1.030)
[2025-04-04 01:40] LABS: Add Urine Microscopic? YES
[2025-04-04 01:41] LABS: PCP Screen Urine Negative (Negative)
[2025-04-04 01:45] LABS: Alanine Aminotransferase 73 U/L (0-33); Albumin Level 4.3 g/dL (3.5-5.2); Alcohol Level 169 mg/dL (0-10); Alkaline Phosphatase 63 U/L (35-105); Aspartate Amino Transferase 101 U/L (0-32); Blood Urea Nitrogen 8 mg/dL (6-20); Calcium 8.8 mg/dL (8.5-10.5); Carbon Dioxide 24 mmol/L (22-29); Chloride 101 mmol/L (98-107); Creatinine Clr Calc Pharmacy 118.9547; Globulin 3.4 g/dL (1.3-4.6); Glucose 94 mg/dL (65-115); Magnesium 2.0 mg/dL (1.7-2.3); Osmolality Calculated 288 mOsm/kg (285-295); Sodium 140 mmol/L (136-145); Total Protein 7.7 g/dL (6.6-8.7)
[2025-04-04 01:48] LABS: Acetaminophen < 5.0 ug/mL (10-30); Salicylate < 0.3 mg/dL (3-10)
[2025-04-04 01:49] LABS: Anion Gap 19.2 (5-19); Potassium 4.2 mmol/L (3.5-5.1)
[2025-04-04] MEDS: multivitamin therapeutic Tablet 1 TAB PO ×2 (01:51→08:56)
[2025-04-04] MEDS: LORazepam 1 MG/0.5 ML injection IVP ×2 (01:52→04:43)
[2025-04-04] MEDS: thiamine 500 MG in sodium chloride 0.9% (100 ml) 100 ML 210 MG IV (02:00)
[2025-04-04 02:05] LABS: Hematocrit 37.3 % (36-47); Hemoglobin 12.10 g/dL (11.27-16.99); Mean Corpuscular HGB Conc 32.4 g/dL (30-55); Mean Corpuscular Hemoglobin 29.0 pg (27-33); Mean Corpuscular Volume 89.4 fl (85-98); Nucleated Red Blood Cells % 0 %; Platelet Count 204 10^3/cmm (157-399); Red Blood Count 4.17 10^6/uL (3.85-5.65); White Blood Count 4.94 10^3/uL (3.29-11.43)
--- NOTE | 2025-04-04 05:13 | P.HP_ITS ---
Providers/Chief Complaint 2 Admitting Physician: Patient seen after 12 midnight Chief Complaint: Wants to detox [facility] History of Present Illness Nadya Low is a 40 year old female with medical history significant for alcoholism who actually takes an average of 20-30 shots of 99 quoted by her on a daily basis. Patient had been trying to stop drinking and the will wind up with alcohol withdrawal seizure. Because she was afraid to go to that she decided to come to the emergency room to seek help to be detoxed. Otherwise no other complaints. Patient related that she was not drinking as much p.o. she had miscarriaged in December of this year which was roughly 3 months ago and because of that she started drinking out of hand according to her. I have seen and evaluated patient and initiated her on [facility] protocol Review of Systems 2 Narrative: 10 organ system reviewed where signific ant for trembling extremities otherwise unremarkable patient is pleasant Medications/Allergies Home Medications ?Medication ?Instructions ?Recorded ?Confirmed ?Last Taken ?Type diclofenac sodium 75 mg 75 mg PO Q12H PRN pain #20 t abs 12/22/24 Unknown Rx tablet,delayed release famotidine 20 mg tablet 20 mg PO Q12H PRN 12/22/24 0 12/22/24 Unknown History indigestion/stomach upset hydroxyzine HCl 50 mg tablet 50 mg PO Q6H PRN Anxiety 12/22/24 12/22/24 Unknown History loperamide 2 mg capsule See Rx Instructions .Route . COMPLEX 12/22/24 12/22/24 Unknown History naproxen 500 mg tablet 500 mg PO Q12H PRN Pain 11/3012/22/24 Unknown History ondansetron 4 mg disintegrating 4 mg PO Q6H PRN Nausea 12/22/24 12/22/24 Unknown History tablet Allergies Allergy/AdvReac Type Severity Reaction Status Date / Time No Known Allergies Allergy Verified 04/03/25 23:12 PFSH Acute 2 Female Reproductive History: Date of last menstrual period: 03/31/25 Vitals/I&O/Wt Last Vital Signs Temp 98.0 F 04/03/25 23:08 Pulse 99 04/04/25 03:11 Resp 16 04/04/25 03:11 BP 114/74 04/04/25 03:11 Pulse Ox 95 04/04/25 03:11 O2 Del Method Room Air 04/04/25 03:11 04/03/25 04/03/25 04/04/25 14:59 22:59 06:59 Intake Total 1105 / 1105 Balance 1105 / 1105 Weight last 48 hrs Weight 50.802 kg Physical Exam 2 Narrative: General The patient is in no apparent distress HEENT normocephalic/atraumatic neck neck is supple cardiovascular heart rate is regular lungs are pretty much clear abdomen soft nontender nondistended unremarkable extremities are intact no edema has good pulses neurology has no focality lab studies lab studies reviewed noted. Data 04/04/25 01:49 04/04/25 01:20 A&P Assessment and plan (1) DTs (delirium tremens): Patient is with impending DTs following alcohol withdrawal Patient is initiated on CIWA protocol And doing okay Admitted to [facility] Continue to follow-up closely and optimize (2) Alcohol withdrawal: Patient undergoing alcohol withdrawal last time drank was yesterday evening. - Continue CIWA protocol - IV hydration (3) Alcohol abuse: Patient has been counseled against alcohol abuse and patient feels that once detox she will continue with alcohol rehabilitation Plan GI and DVT prophylaxis in place PDMP PDMP Reviewed: Not Reviewed Attestations 2 Medical Necessity Statement*: Impending DTs meets criteria for inpatient admission patient be on heart monitor. Coding Level of Care Code 53270 Diagnoses DTs (delirium tremens) F10.931 Alcohol withdrawal F10.939 Alcohol abuse F10.10 Time Spent (min) 60
[2025-04-04] MEDS: heparin 5,000 unit/mL INJ 1 mL 5000 UNIT SUBCUT (06:37)
[2025-04-04] MEDS: thiamine 100 mg/mL 2mL SDV IM (06:37)
--- NOTE | 2025-04-04 10:46 | PC.CHAP ---
Pastoral Care Encounter/Spiritual Assessment Type of Contact [] Declined fiberglass pipe covering supervisor visit [] Patient/Family/Request visit [] Outpatient visit [] Follow-up visit [] Physician referral [] Code/Alert [x] Routine visit [] Staff referral [] Actively dying [x] Patient sleeping [] Family support [] [] Out of room [] Palliative care [] [] Receiving care in room [] Pre-surgical visit [] Trauma [] Long length of stay [] ICU visit [] Other: Relational/Emotional Strength [] Patient feels connected with others/family/visitors/staff [] Distress [] Loneliness/isolation [] Abandonment Spirituality of Patient [] Person of M[place] [] Attends Church of their [place] [] Believes in Prayer [] Reads Bible or Zoroastrianism materials [] There are Spiritual issues to be addressed Press Set Up Interventions [] Prayer [] Active listening [] Non-anxious presence [] Spiritual/emotional support [] Crisis/trauma care [] Spiritual counseling [] Bereavement support [] Provided bereavement packet [] Provided Bible/devotional materials [] Provided toy/stuffed animal, coloring book to patient or family member [] Provided Communion [] Anointing/[place] [] Salvation [] Completed spiritual assessment [] Other: Impact on Illness or Injury [] Angry [] Fearful [] Anxious [] Often cries [] Exhaustion [] Unable to work [] Unable to attend protestant [] Unable to walk/stand [] Unable to read [] Unable to drive [] Unable to eat/drink [] Unable to sleep [] Unable to be with family [] Patient intubated [] Other: Summary Time spent with patient
[2025-04-04 11:36] LABS: HIV 1 & 2 Antigen Non-Reactive (Non-Reactiv)
[2025-04-04 11:42] LABS: Hepatitis A Antibody IgM Non-Reactive (Nonreactive); Hepatitis B Surface Antigen Non-Reactive (Nonreactive)
--- NOTE | 2025-04-04 13:02 | P.PN_ITS ---
Subjective 2 Subjective: Patient was seen this morning, she feels unwell, denies any fevers, no chills, does have nausea, does report tremors, no visual auditory tactile hallucinations, she does report symptoms of depression, after her miscarriage, denies any suicidal ideation, no homicidal ideation denies seeing or hearing things are not there Vitals/I&O/Wt Last Vital Signs Temp 98.7 F 04/04/25 11:31 Pulse 83 04/04/25 11:31 Resp 16 04/04/25 11:31 BP 119/79 04/04/25 11:31 Pulse Ox 97 04/04/25 11:31 O2 Del Method Room Air 04/04/25 11:31 04/03/25 04/04/25 04/04/25 22:59 06:59 14:59 Intake Total 1115 / 1115 100 / 100 Balance 1115 / 1115 100 / 100 Weight last 48 hrs Weight 58.649 kg Weight 50.802 kg Physical Exam 2 Const: COMMON NORMALS: no acute distress and patient oriented x3 Resp: COMMON NORMALS: normal respiratory effort, No retractions, No use of accessory muscles and clear to auscultation bilaterally AUSCULTATION: clear to auscultation bilaterally Cardio: COMMON NORMALS: regular rate, regular rhythm, S1 normal heart sound present and S2 normal heart sound present RATE: regular rate RHYTHM: r egular rhythm HEART SOUNDS: S1 normal heart sound present and S2 normal heart sound present GI: COMMON NORMALS: Normal to inspection, nondistended, normoactive bowel sounds present and non-tender Extremity: COMMON NORMALS: no pedal edema Neuro: COMMON NORMALS: patient oriented x3 Psych: COMMON NORMALS: mental status grossly normal Data 04/04/25 01:49 04/04/25 01:20 A&P Assessment and plan (1) DTs (delirium tremens): Clinically improving this morning, no significant evidence of delirium tremens currently Continue CIWA protocol (2) Alcohol withdrawal: - Continue CIWA protocol - IV fluids (3) Alcohol abuse: - Consult psychiatry Plan History of hepatitis C, HIV, acute hep panel, liver ultrasound will need to follow-up with infectious disease as outpatient GI and DVT prophylaxis in place PDMP PDMP Reviewed: Not Reviewed Attestations 2 Medical Necessity Statement*: Patient requires hospitalization for alcohol withdrawal Diagnoses DTs (delirium tremens) F10.931 Alcohol withdrawal F10.939 Alcohol abuse F10.10
--- NOTE | 2025-04-04 17:26 | PC.NURSE ---
Patient left AMA. Discussed the risk of morbidity and mortality since patient was here for detoxing. Patient stated did not care. Wanted a medicaid ride home but explained medicaid would not take patient due to leaving against medical advice. Medicaid would not pay and the service is not going to do something for the patient that could result in a bad situation for the patient. Patient ask friend at bedside if she would give her a ride. Patient signed AMA sheet and MASK INSPECTOR walked patient to elevator.
--- NOTE | 2025-04-05 08:29 | P.DS_ITS ---
Discharge Providers Date of Admission: 04/04/25 06:03 Date of Discharge: April 05, 2025 Attending Provider at Admission: Krystal Love MD Attending Provider at Discharge: Tyrell Greer MD Diagnoses at Discharge Discharge Diagnosis (1) DTs (delirium tremens): Status: Acute (2) Alcohol withdrawal: Status: Acute (3) Alcohol abuse: Status: Acute Reason for Visit Reason for Visit: Wants to detox [facility] Hospital Course Hospital Course This is a 49-year-old female with past medical history of alcoholism, who presents [facility] for alcohol withdrawal Patient was monitored as inpatient for acute alcohol withdrawal - Her withdrawal symptoms were improving on CIWA protocol - Had a detailed discussion with her about alcohol cessation counseling - Patient has declined inpatient rehab - She understands morbidity and mortality associated with alcoholism - Patient wanted to leave AGAINST MEDICAL ADVICE, through nursing staff she was advised the morbidity and mortality against leaving AGAINST MEDICAL ADVICE, patient left AGAINST MEDICAL ADVICE - Will send in folic acid, thiamine - If any significant alcohol withdrawal symptoms, please come back to the hospital For her miscarriage - She denies any suicidal ideation, no homicidal ideation, denies seeing or hearing things that are not there, does report feeling down after her miscarriage, she appeared appropriate, good eye contact, appeared remorseful for her alcoholism - Psychiatry was consulted, however patient left AGAINST MEDICAL ADVICE before she could be seen - As patient did not have any suicidal ideation, no homicidal ideation, was not a threat to herself or others, she left AGAINST MEDICAL ADVICE, although I advised against it, discussed with patient morbidity of mortality associated Physical Exam Const: COMMON NORMALS: no acute distress ORIENTATION/CONSCIOUSNESS: Yes awake, Yes oriented to person, Yes oriented to place and Yes oriented to time Resp: COMMON NORMALS: normal respiratory effort, No retractions, No use of accessory muscles and clear to auscultation bilaterally AUSCULTATION: clear to auscultation bilaterally Cardio: COMMON NORMALS: regular rate, regular rhythm, S1 normal heart sound present and S2 normal heart sound present RATE: regular rate RHYTHM: regular rhythm HEART SOUNDS: S1 normal heart sound present and S2 normal heart sound present GI: COMMON NORMALS: Normal to inspection, nondistended, normoactive bowel sounds present and non-tender Extremity: COMMON NORMALS: no pedal edema Neuro: SENSORIUM/ORIENTATION: Yes oriented to person, Yes oriented to place and Yes oriented to time Psych: COMMON NORMALS: mental status grossly normal, Normal thought process present, normal affect, speech normal, activity/motor behavior normal, denies hallucinations, denies homicidal ideation and denies suicidal ideation SPEECH: Yes normal speech THOUGHT PROCESS: Normal thought process present Discharge Data Studies Completed and Pending Laboratory Results WBC 4.94 10^3/uL (3.29-11.43) 04/04/25 01:49 Corrected WBC Cancelled 04/04/25 01:20 RBC 4.17 10^6/uL (3.85-5.65) 04/04/25 01:49 Hgb 12.10 g/dL (11.27-16.99) 04/04/25 01:49 Hct 37.3 % (36-47) 04/04/25 01:49 MCV 89.4 fl (85-98) 04/04/25 01:49 MCH 29.0 pg (27-33) 04/04/25 01:49 MCHC 32.4 g/dL (30-55) 04/04/25 01:49 RDW 13.4 % (12.1-15.1) 04/04/25 01:49 Plt Count 204 10^3/cmm (157-399) 04/04/25 01:49 MPV 9.3 fL (7.4-10.4) 04/04/25 01:49 Gran % Cancelled 04/04/25 01:20 Neut % (Auto) 52.3 % 04/04/25 01:49 Lymph % (Auto) 35.6 % 04/04/25 01:49 [place] % (Auto) 7.9 % 04/04/25 01:49 Eos % (Auto) 2.8 % 04/04/25 01:49 Baso % (Auto) 1.0 % 04/04/25 01:49 Neut # (Auto) 2.58 10^3/uL (1.8-7.7) 04/04/25 01:49 Lymph # (Auto) 1.8 10^3/uL (0.8-4.8) 04/04/25 01:49 [place] # (Auto) 0.4 10^3/uL (0.2-0.9) 04/04/25 01:49 Eos # (Auto) 0.1 10^3/uL (0.0-0.8) 04/04/25 01:49 Baso # (Auto) 0.1 10^3/uL (0.0-0.1) 04/04/25 01:49 Absolute Gran (auto) Cancelled 04/04/25 01:20 Nucleated RBC % (auto) 0 % 04/04/25 01:49 Nucleated RBCs # 0.0 /100WBC 04/04/25 01:49 Sodium 140 mmol/L (136-145) 04/04/25 01:20 Potassium 4.2 mmol/L (3.5-5.1) 04/04/25 01:20 Chloride 101 mmol/L (98-107) 04/04/25 01:20 Carbon Dioxide 24 mmol/L (22-29) 04/04/25 01:20 Anion Gap 19.2 (5-19) H 04/04/25 01:20 BUN 8 mg/dL (6-20) 04/04/25 01:20 Creatinine 0.5 mg/dL (0.5-0.9) 04/04/25 01:20 GFR Calculation 136.6 mL/min (90-130) H 04/04/25 01:20 Glucose 94 mg/dL (65-115) 04/04/25 01:20 POC Glucose 99 mg/dL (70-110) 04/04/25 06:38 Calculated Osmolality 288 mOsm/kg (285-295) 04/04/25 01:20 Calcium 8.8 mg/dL (8.5-10.5) 04/04/25 01:20 Magnesium 2.0 mg/dL (1.7-2.3) 04/04/25 01:20 Total Bilirubin 0.3 mg/dL (0.15-1.2) 04/04/25 01:20 AST 101 U/L (0-32) H 04/04/25 01:20 ALT 73 U/L (0-33) H 04/04/25 01:20 Alkaline Phosphatase 63 U/L (35-105) 04/04/25 01:20 Total Protein 7.7 g/dL (6.6-8.7) 04/04/25 01:20 Albumin 4.3 g/dL (3.5-5.2) 04/04/25 01:20 Globulin 3.4 g/dL (1.3-4.6) 04/04/25 01:20 HCG, Qual Negative (Negative) 04/04/25 01:28 Urine Color Yellow (Yellow) 04/04/25 01: Urine Appearance Clear (CLEAR) 04/04/25 01:28 Urine pH 6.0 (5-7) 04/04/25 01:28 Ur Specific [place] 1.013 (1.005-1.030) 04/04/25 01:28 Urine Protein Negative (Negative) 04/04/25 01:28 Urine Glucose (UA) Negative (Normal) 04/04/25 01: Urine Ketones Negative (Negative) 04/04/25 01: Urine Blood Negative (Negative) 04/04/25 01: Urine Nitrate Negative (Negative) 04/04/25 01: Urine Bilirubin Negative (Negative) 04/04/25 01: Urine Urobilinogen 0.2 mg/dL (Negative) 04/04/25 01:28 Ur Leukocyte Esterase Negative (Negative) 04/04/25 01:28 Urine RBC 0-2 /hpf (0-2) 04/04/25 01:28 Urine WBC 0-5 /hpf (0-5) 04/04/25 01:28 Ur Squamous Epith Cells 0-5 /hpf (0-5) 04/04/25 01:28 Amorphous Sediment Not Reportable 04/04/25 01:28 Urine Bacteria 2+ /hpf (NONE) H 04/04/25 01:28 Hyaline Casts 0-4 /lpf H 04/04/25 01:28 Salicylates < 0.3 mg/dL (3-10) L 04/04/25 01:20 Urine Opiates Screen Negative ng/mL (Negative) 04/04/25 01:28 Acetaminophen < 5.0 ug/mL (10-30) L 04/04/25 01:20 Ur Barbiturates Screen Negative ng/mL (Negative) 04/04/25 01:28 Ur Phencyclidine Scrn Negative ng/mL (Negative) 04/04/25 01:28 Ur Amphetamines Screen Negative ng/mL (Negative) 04/04/25 01:28 U Benzodiazepines Scrn Negative ng/mL (Negative) 04/04/25 01:28 Urine Cocaine Screen Negative ng/mL (Negative) 04/04/25 01:28 U Marijuana (THC) Screen Negative ng/mL (Negative) 04/04/25 01:28 Ethyl Alcohol 169 mg/dL (0-10) H 04/04/25 01:20 Hepatitis A IgM Ab Non-reactive (Nonreactive) 04/04/25 01:20 Hep Bs Antigen Non-reactive (Nonreactive) 04/04/25 01:20 Hep B Core IgM Ab Non-reactive (Nonreactive) 04/04/25 01:20 Hepatitis C Antibody Reactive (Nonreactive) H 04/04/25 01:20 HCV RNA Qnt PCR Amp&Det Cancelled 04/04/25 12:11 HCV RNA (PCR) IUs/ml Cancelled 04/04/25 12:11 HCV RNA (PCR) IU log10 Cancelled 04/04/25 12:11 HIV 1&2 Ab & HIV 1 Ag Non-reactive (Non-Reactiv) 04/04/25 01:20 HIV 1&2 Antibody Non-reactive (Non-Reactiv) 04/04/25 01:20 Vitals Last Vital Signs Temp 98.3 F 04/04/25 15:30 Pulse 95 04/04/25 15:30 Resp 15 04/04/25 15:30 BP 133/85 04/04/25 15:30 Pulse Ox 96 04/04/25 15:30 O2 Del Method Room Air 04/04/25 15:30 Discharge Plan Discharge Patient Disposition: Left Against Medical Advice Condition: Stable Prescriptions: New thiamine HCl (vitamin B1) 100 mg tablet 100 mg PO DAILY 30 Days Qty: 30 0RF multivitamin [Daily Multi-Vitamin] Tablet 1 tab PO DAILY 30 Days Qty: 30 0RF Discontinued buprenorphine-naloxone [Suboxone] 8-2 mg film 1 film sublingual TID Discharge Diet: Regular Discharge Activity: Resume usual activity Patient Instructions: Opioid Safety, Patient Portal & Ken Instructions Discharge Attestations Time Spent in Discharge Care*: greater than 30 min Quality Metrics Clinical Quality Measures [ No reported AMI, CVA or VTE this stay] Coding Level of Care Code 31436 Total time (in minutes) for Discharge: 45 Diagnoses DTs (delirium tremens) F10.931 Alcohol withdrawal F10.939 Alcohol abuse F10.10
== END 2025-04-04 16:57 | disposition left against medical advice (07) | DRG 894 ==
LOC: ER 04-04 02:20 → MEDSURG 04-04 06:03
PROVIDERS: Admitting Provider Internal Medicine; Emergency Provider Emergency Medicine; Visit Provider Family Medicine
DX: F10.131 Alcohol abuse with withdrawal delirium (principal); Y90.6 Blood alcohol level of 120-199 mg/100 ml; Z53.29 Procedure and treatment not carried out because of patient's decision for other reasons
CPT/HCPCS: 36415; 36416; 80053; 80074; 80306; 80307; 81001; 81025; 82962; 83735; 85025; 87806; 93005; 93010; 96361; 96372; 96374; 96376; 99285; J1644; J2060; J3411; J7030; J9999

== ENCOUNTER 2025-04-15 22:08 | Emergency (ER) | payer MEDICAID, SELFPAY ==
--- OUTSIDE RECORDS SUMMARY | 2022-09-06 02:25 | XMS_ITS | Continuity of Care Document ---
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 senses. Intelligence is average per fund of knowledge and vocabulary. Judgment and insight are intact. Mood is euthymic. Affect is congruent. Attention and concentration appear within normal limits. Immediate memory is intact; able to repeat three words. Recent memory is intact; able to recall those three words in five minutes. Remote memory is intact; able to recall last birthday. Language is intact; patient is able to name objects. Neurological Examination:Cranial Nerves: Oflaction (I) intact by identifying the smell of coffee grounds. Visula acuity (II) is good bilaterally with 20/20 vision on hand-held chart. Visual samaniego are full to confrontation in all quadrants. Pupils are equally round at 3mm and reactive to light accommodation. Extraocular movements are intact (III, IV, ), with no ptosisi. Sensory over the face (V) is intact and equal bilaterally. Hearing (VIII) is grossly intact bilaterally. Chadwick does not lateralize and AC>BC (normal Rinne) in both ears. Vestibular function intact (see motor/gait). The palate (IX and X) and uvula elevate symmetrically, with an intact gag reflex bilaterally and a normal voice. Shoulder shrug and head turning via trapezius and sternocleidomastoid (XI) is strong and equal bilaterally. Tongue protrudes (XII) midline and moves symmetrically with no fasciculations.Refluxes: Biceps, brachioradialis, triceps, patellar, and achilles are 2/4 bilaterally; no clonus. Plantar (Babinski) is downgoing bilaterally.Sensory: Intact bilaterally for pain (spinothalamic tract), position and vibration (posterior columns), along with light touch. Cortical discrimination intact with localization, 2-point discrimination, stereognosis, and graphesthesia. Romberg is negative with no pronator drift.Motor: Good muscle bulk and tone. Strength 5/5 (deltoid, biceps, triceps, quadriceps, and hamstrings).Cerebellar- rapidly alternating movements (JORDYN), ulkoan-gr-pjyp (F'an), pronator drift. Gait with normal base. Coordination is good as measured by tandem walk, heel walk, and toe walk. No asterixix. Functional Status Date Functional Assessmen t No Information Instructions Date Instruction Additional Infor mation [facility] [place] [facility] [place] Abilify shot todayDC Abilify oral continue all medications since stable Increase fluidscontinue coping mechanisms Labs goodphysical good Went over medications Already signed CDC and ESTHER guidelines/pain protocol/ Discussed risk verse benefitsDiscussed taking own medications that are prescribed only and not sharing medications I reviewed the patient's chart including previous progress notes, lab data and nursing notes. We spoke about the risks and benefits of changes being made in medications, including possible drug/drug interactions and potential side effects. I explained the reason for the changes, i.e. better genetic match, different side effect profile and targeted symptoms. I explained other treatment options available. We also spoke about life style changes, including diet, exercise and substance abuse. Lastly, we spoke about continuing the treatment plan and what to do if conditions worsen.Follow up in 4 weeks, Call PRN with any issues. 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 Franco Gamez DO evaluate Increase fluidscontinue coping mechanisms Labs goodphysical good Went over medications Already signed CDC and ESTHER guidelines/pain protocol/ Discussed risk verse benefitsDiscussed taking own medications that are prescribed only and not sharing medications I reviewed the patient's chart including previous progress notes, lab data and nursing notes. We spoke about the risks and benefits of changes being made in medications, including possible drug/drug interactions and potential side effects. I explained the reason for the changes, i.e. better genetic match, different side effect profile and targeted symptoms. I explained other treatment options available. We also spoke about life style changes, including diet, exercise and substance abuse. Lastly, we spoke about continuing the treatment plan and what to do if conditions worsen.Follow up in 4 weeks, Call PRN with any issues. 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 We spoke about the risks and benefits of changes being made in medications, including possible drug/drug interactions and potential side effects. I explained the reason for the changes, i.e. better genetic match, different side effect profile and targeted symptoms. I explained other treatment options available. We also spoke about life style changes, including diet, exercise and substance abuse. Lastly, we spoke about continuing the treatment plan and what to do if conditions worsen.Follow up in 2 weeks, Call PRN with any issues. Related to Other senior living (current) drug therapy [facility] pharmacyStart Abilify 10mg at nightStart Suboxone Increase fluidscontinue coping mechanisms Labs goodphysical good Went over medications Already signed CDC and ESTHER guidelines/pain protocol/ Discussed risk verse benefitsDiscussed taking own medications that are prescribed only and not sharing medications I reviewed the patient's chart including previous progress notes, lab data and nursing notes. We spoke about the risks and benefits of changes being made in medications, including possible drug/drug interactions and potential side effects. I explained the reason for the changes, i.e. better genetic match, different side effect profile and targeted symptoms. I explained other treatment options available. We also spoke about life style changes, including diet, exercise and substance abuse. Lastly, we spoke about continuing the treatment plan and what to do if conditions worsen.Follow up in 1 weeks, Call PRN with any issues. Related to Moderate episode of recurrent major depressive disorder UDSWent over [facility] inue all medications since stable Increase fluidscontinue coping mechanisms Labs goodphysical good Went over medications Already signed CDC and ESTHER guidelines/pain protocol/ Discussed risk verse benefitsDiscussed taking own medications that are prescribed only and not sharing medications I reviewed the patient's chart including previous progress notes, lab data and nursing notes. We spoke about the risks and benefits of changes being made in medications, including possible drug/drug interactions and potential side effects. I explained the reason for the changes, i.e. better genetic match, different side effect profile and targeted symptoms. I explained other treatment options available. We also spoke about life style changes, including diet, exercise and substance abuse. Lastly, we spoke about continuing the treatment plan and what to do if conditions worsen.Follow up in 12 weeks, Call PRN with any issues. Related to Other senior living (current) drug therapy [facility]ent over [facility] inue all medications since stable Tasked Dr. Franco Gamez DO evaluate Increase fluidscontinue coping mechanisms Labs goodphysical good Went over medications Already signed CDC and ESTHER guidelines/pain protocol/ Discussed risk verse benefitsDiscussed taking own medications that are prescribed only and not sharing medications I reviewed the patient's chart including previous progress notes, lab data and nursing notes. We spoke about the risks and benefits of changes being made in medications, including possible drug/drug interactions and potential side effects. I explained the reason for the changes, i.e. better genetic match, different side effect profile and targeted symptoms. I explained other treatment options available. We also spoke about life style changes, including diet, exercise and substance abuse. Lastly, we spoke about continuing the treatment plan and what to do if conditions worsen.Follow up in 4 weeks, Call PRN with any issues. 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 We spoke about the risks and benefits of changes being made in medications, including possible drug/drug interactions and potential side effects. I explained the reason for the changes, i.e. better genetic match, different side effect profile and targeted symptoms. I explained other treatment options available. We also spoke about life style changes, including diet, exercise and substance abuse. Lastly, we spoke about continuing the treatment plan and what to do if conditions worsen.Follow up in 12 weeks, Call PRN with any issues. 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 We spoke about the risks and benefits of changes being made in medications, including possible drug/drug interactions and potential side effects. I explained the reason for the changes, i.e. better genetic match, different side effect profile and targeted symptoms. I explained other treatment options available. We also spoke about life style changes, including diet, exercise and substance abuse. Lastly, we spoke about continuing the treatment plan and what to do if conditions worsen.Follow up in 8 weeks, Call PRN with any issues. 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 We spoke about the risks and benefits of changes being made in medications, including possible drug/drug interactions and potential side effects. I explained the reason for the changes, i.e. better genetic match, different side effect profile and targeted symptoms. I explained other treatment options available. We also spoke about life style changes, including diet, exercise and substance abuse. 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 We spoke about the risks and benefits of changes being made in medications, including possible drug/drug interactions and potential side effects. I explained the reason for the changes, i.e. better genetic match, different side effect profile and targeted symptoms. I explained other treatment options available. We also spoke about life style changes, including diet, exercise and substance abuse. Lastly, we spoke about continuing the treatment plan and what to do if conditions worsen.Follow up in 4 weeks, Call PRN with any issues Related to Mild episode of recurrent major depressive disorder UDSWent over [facility] ease fluidscontinue coping mechanisms continue all medications since stable Labs goodphysical good Went over medications Gave control script to patient in [facility] signed CDC and ESTHER guidelines/pain protocol/ Discussed risk verse benefitsDiscussed taking own medications that are prescribed only and not sharing medications I reviewed the patient's chart including previous progress notes, lab data and nursing notes. We spoke about the risks and benefits of changes being made in medications, including possible drug/drug interactions and potential side effects. I explained the reason for the changes, i.e. better genetic match, different side effect profile and targeted symptoms. I explained other treatment options available. We also spoke about life style changes, including diet, exercise and substance abuse. 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 Verbalized understanding. Increase fluidscontinue coping mechanisms continue all medications since stable Labs goodphysical good Went over medications [facility] signed [facility] and [facility] guidelines/pain protocol/ Discussed risk verse benefitsDiscussed taking own medications that are prescribed only and not sharing medications I reviewed the patient's chart including previous progress notes, lab data and nursing notes. We spoke about the risks and benefits of changes being made in medications, including possible drug/drug interactions and potential side effects. I explained the reason for the changes, i.e. better genetic match, different side effect profile and targeted symptoms. I explained other treatment options available. We also spoke about life style changes, including diet, exercise and substance abuse. 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 We spoke about the risks and benefits of changes being made in medications, including possible drug/drug interactions and potential side effects. I explained the reason for the changes, i.e. better genetic match, different side effect profile and targeted symptoms. I explained other treatment options available. We also spoke about life style changes, including diet, exercise and substance abuse. 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 Joan GARCIA evaluatedGave control script to patient in roomAlready signed CDC and ESTHER guidelines/pain protocol/ Discussed risk verse benefitsDiscussed taking own medications that are prescribed only and not sharing medications I reviewed the patient's chart including previous progress notes, lab data and nursing notes. We spoke about the risks and benefits of changes being made in medications, including possible drug/drug interactions and potential side effects. I explained the reason for the changes, i.e. better genetic match, different side effect profile and targeted symptoms. I explained other treatment options available. We also spoke about life style changes, including diet, exercise and substance abuse. 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 We spoke about the risks and benefits of changes being made in medications, including possible drug/drug interactions and potential side effects. I explained the reason for the changes, i.e. better genetic match, different side effect profile and targeted symptoms. I explained other treatment options available. We also spoke about life style changes, including diet, exercise and substance abuse. Lastly, we spoke about continuing the treatment plan and what to do if conditions worsen.Follow up in 4 weeks, Call PRN with any issues Related to [facility] Cota for PCPincrease fluidscontinue coping mechanisms continue all medications as prescribed. Discussed hand washing Labs goodphysical good Went over medications Dr. Joan GARCIA evaluatedGave control script to patient in [facility]North [facility] signed CDC and ESTHER guidelines/pain protocol/ Discussed risk verse benefitsDiscussed taking own medications that are prescribed only and not sharing medications I reviewed the patient's chart including previous progress notes, lab data and nursing notes. We spoke about the risks and benefits of changes being made in medications, including possible drug/drug interactions and potential side effects. I explained the reason for the changes, i.e. better genetic match, different side effect profile and targeted symptoms. I explained other treatment options available. We also spoke about life style changes, including diet, exercise and substance abuse. Lastly, we spoke about continuing the treatment plan and what to do if conditions worsen.Follow up in 4 weeks, Call PRN with any issues Related to Other senior living (current) drug therapy UDSWent over UDSPCP: Rody Duongase fluidscontinue coping mechanisms continue all medications since stable Went over medications Dr. Joan GARCIA evaluatedGave control script to patient [facility] signed CDC and ESTHER guidelines/pain protocol/ Discussed risk verse benefitsDiscussed taking own medications that are prescribed only and not sharing medications I reviewed the patient's chart including previous progress notes, lab data and nursing notes. We spoke about the risks and benefits of changes being made in medications, including possible drug/drug interactions and potential side effects. I explained the reason for the changes, i.e. better genetic match, different side effect profile and targeted symptoms. I explained other treatment options available. We also spoke about life style changes, including diet, exercise and substance abuse. 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 Verbalized understanding. Dr. Joan GARCIA evaluatedGave control script to patient in [facility] signed [facility] and ESTHER guidelines/pain protocol/ Discussed risk verse benefitsDiscussed taking own medications that are prescribed only and not sharing medications I reviewed the patient's chart including previous progress notes, lab data and nursing notes. We spoke about the risks and benefits of changes being made in medications, including possible drug/drug interactions and potential side effects. I explained the reason for the changes, i.e. better genetic match, different side effect profile and targeted symptoms. I explained other treatment options available. We also spoke about life style changes, including diet, exercise and substance abuse. Lastly, we spoke about continuing the treatment plan and what to do if conditions worsen.Follow up in 4 weeks, Call PRN with any issues Related to Other senior living (current) drug therapy UDSWent over [facility] inue all medications since stableIncrease fluidscontinue coping mechanisms Went over medications Dr. Franco TOWNSEND evaluatedGave control script to patient in [facility]Al[facility] signed CDC and ESTHER guidelines/pain protocol/ Discussed risk verse benefitsDiscussed taking own medications that are prescribed only and not sharing medications I reviewed the patient's chart including previous progress notes, lab data and nursing notes. We spoke about the risks and benefits of changes being made in medications, including possible drug/drug interactions and potential side effects. I explained the reason for the changes, i.e. better genetic match, different side effect profile and targeted symptoms. I explained other treatment options available. We also spoke about life style changes, including diet, exercise and substance abuse. Lastly, we spoke about continuing the treatment plan and what to do if conditions worsen.Follow up in 4 weeks, Call PRN with any issues Related to Other senior living (current) drug therapy UDSWent over [facility]. May fill on August 29 one time only. Discussed that her next fill date will be 33 days from the 29 of August. Verbalized understanding. Taking her Suboxone as prescribed. Went over medications Dr. Franco TOWNSEND evaluatedGave control script to patient in roomAlready signed [facility] and [facility] guidelines/pain protocol/ Discussed risk verse benefitsDiscussed taking own medications that are prescribed only and not sharing medications I reviewed the patient's chart including previous progress notes, lab data and nursing notes. We spoke about the risks and benefits of changes being made in medications, including possible drug/drug interactions and potential side effects. I explained the reason for the changes, i.e. better genetic match, different side effect profile and targeted symptoms. I explained other treatment options available. We also spoke about life style changes, including diet, exercise and substance abuse. Lastly, we spoke about continuing the treatment plan and what to do if conditions worsen.Follow up in 4 weeks, Call PRN with any issues Related to Other senior living (current) drug therapy Discussed with pt th e cost of work up to determine root cause of swelling could be expensive. We can treat with low dose prn HCTZ for now, but would need baseline CMP in next few months. Pt agreeable to this plan today, she has no insurance, cost of CMP provided to pt today. Will continue the HCTZ 12.5mg tabs, 1/2 to 1 tab po qday prn swelling, qty 15 with 3 refillsRTC 4 months, prn acute needs. Pt will need to plan to have cmp obtained in next 4 months. RTC prn acute needs Risks/benefits/side effects of new medication reviewed with pt today, all questions answered. Related to Swelling of extremity UDSWent over UDSincr ease fluidsDiscussed NA intakeDiscussed referral to [facility] for PCPContinue coping mechanisms Went over medications Dr. Joan GARCIA evaluatedGave control script to patient in roomAlready signed CDC and [facility] guidelines/pain protocol/ Discussed risk verse benefitsDiscussed taking own medications that are prescribed only and not sharing medications I reviewed the patient's chart including previous progress notes, lab data and nursing notes. We spoke about the risks and benefits of changes being made in medications, including possible drug/drug interactions and potential side effects. I explained the reason for the changes, i.e. better genetic match, different side effect profile and targeted symptoms. I explained other treatment options available. We also spoke about life style changes, including diet, exercise and substance abuse. Lastly, we spoke about continuing the treatment plan and what to do if conditions worsen.Follow up in 4 weeks, Call PRN with any issues Related to Other senior living (current) drug therapy As per patient privacy policy some of the clinical information may not be visible. Assessments Type Assessment Date No Information Goals Health Concern Goal Type Priority Status Date Insurance Patient will meet [facility] before the 14 of September to get information about insurance Patient Goal Locked medication bag Patient willl rece jamilah a locked medication bag to protect her medications Patient Goal Narcan Training Patient will attend a [facility] training and get a narcan kit Patient Goal Patient Care Teams Name Effective Dates (start - stop) Status Members No Information
--- OUTSIDE RECORDS SUMMARY | 2024-12-11 03:40 | XMS_ITS ---
Author Organization [facility] Address [address] [address] Care Team Providers Care As400 Administrator Name Role Phone ( [facility] ), PHYSICIAN NOT IDENTIFIED Primary Care Provider Unavailable Samia Nunez Unavailable [phone] Chase Zacarias Unavailable [phone] REASON FOR VISIT Establish care Social History Sex Assigned At : Social History Observation Description Sex Assigned At Female Encounters Encounter Location Date Provider Diagnosis 18[facility] [address] [address] 12/11/2024 Chase Zacarias Plan Of Treatment No Information Progress Notes * David WHITEB: 985 (40 yo F)Acc No.[id number]:12/11/2024 Progress Notes Patient: Nadya Tavares Provider: TJ Alvarez :1985 A ge:39 Y S ex:Female Date:12/11/2024 Address:[address] [place], [place] [phone] Pcp:PHYSICIAN NOT IDENTIFIED ( [facility] ) Subjective: * Chief Complaints: * E stablish care Billing Information: * Procedure Codes: * Electronic signature of TJ Patterson on 04/15/2025 at 10:20 PM CDT Sign off status: Pending * Provider: TJ Alvarez Date: 0 12/11/2024 Generated for Printi ng/Faxing/eTransmitting on: 0 04/15/2025 10:20 PM CDT
[2025-04-15 22:18] VITALS: BP 129/89; PULSE 110; RESP 18; TEMP 36.8; O2SAT 96; BMI 21.0
--- OUTSIDE RECORDS SUMMARY | 2025-04-15 22:20 | XMS_ITS | Patient Health Record ---
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 Acetyl norfentanyl: Fentanyl Negative. Acry l fentanyl: Fentanyl Negative. Carfentanil: Fentanyl Negative. Para-fluorofentan yl: Fentanyl Negative. Codeine Quantification negative 50 ng/mL N Morphine [...] N Tramadol Quantification negative 100 ng/mL N C-wexnggfqg-wlholoki Quantification negative 100 ng/mL N S-Icvnycsws-Noigyioy Quantification negative 100 ng/mL N Tapentadol Quantification negative 50 ng/mL N Meperidine Quantification negative 50 ng/mL N Normeperidine Quantification negative 50 ng/mL N Alpha-Hydroxyalprazolam Quantification negative 20 ng/mL N 6-Dpolp-Sqrpavmpoe Quantification negative 20 ng/mL N Lorazepam Quantification [...] N Flubromazolam Quantification negative 10 ng/mL N [id number] metabolite Quantification negative 10 ng/mL N YUY738 metabolite Quantification negative 10 ng/mL N RCS4 metabolite Quantification negative 10 ng/mL N XLR11/UR144 metabolite negative 10 ng/mL N 5F-ADB-M7 negative 10 ng/mL N QX-SSGXAYSW-V3 negative 10 ng/mL N MRWH-VCIEDQGQ-V9 negative 10 ng/mL N Eutylone Quantification negative 10 ng/mL N Methylone Quantification negative 3 ng/mL N Xylazine Quantification negative 10 ng/mL N 4-hydroxy Xylazine Quantification negative 10 ng/mL N Mitragynine (Kratom alkaloid ) Quantification negative 1 ng/mL ng/mL N 1-AV-Yadnztpoztn (Kratom alk aloid) Quantification negative 1 ng/mL [...] phone, visiting friends or family, going to advent or club meetings) Less than once a week How stressed are you? Stress is when someone feels tense, nervous, anxious, or cant sleep at night because their mind is troubled Very much In the past year have you sp ent more than 2 nights in a row in a usp, senior living, prison center, or juvenile correctional facility? No Are [...] Status W/U Status Risk Notes Problem Opioid dependence (69499940) Opioid dependence, uncomplicated (F11.20) Active confirmed Vital Signs Heart Rate 88 /min 11/24/2024 Temperature 98.0 degrees Fahrenheit 11/24/2024 Height-cm 157.48 cm 11/24/2024 Oximetry 99 % 11/24/2024 Blood pressure diastolic 70 mm Hg 11/24/2024 Weight-kg 52.16 kg 11/24/2024 Height 62 in 11/24/2024 Blood pressure systolic 132 mm Hg 11/24/2024 Weight 115 lbs 11/24/2024 BMI 21.03 kg/m2 11/24/2024 Encounters Encounter Location Date Provider Diagnosis [facility] [address] [place] [address] 11/05/2024 Feng Alexandra Opioid dependence, uncomplicated F11.[address] [place] [address] [address] [facility] [place] [address] 11/05/2024 Feng Alexandra [facility] [address] [place] [address] 11/24/2024 Samia Nunez Opioid dependence, uncomplicated F11.[address] [place] [address] [address] [place] [address] 12/08/2024 Samia Nunez Assessments Encounter Date Diagnosis (ICD Code) Assessment Notes Treatment Notes Treatment Clinical Notes Section Notes 11/24/2024 Opioid dependence, uncomplicated (ICD-10 - F11.20) Pt was discharged to home in no distress, is to continue Suboxone as prescribed, stable on current dose, the importance of compliance discussed, medication is not to diverted, Pt. to bring in medication bottle with her at each visit. No SI/HI upon d/c. F/u in 1 month 11/05/2024 Opioid dependence, uncomplicated (ICD-10 - F11.20) Pt was given a 2 week appt to est care and have them take over her Suboxone care and possibly treat her for Hep C. Stable at time of d/c no evidence of distress. is considering the shot/ injectable suboxone- will discuss at PCP appt. Informational pamplets given. Plan Of Treatment No Information Insurance Providers Payer Name Payer Address Payer Phone Subscriber Number Group Number Insured Name Patient Relationship to Insured Coverage Start Date Coverage End Date [facility] [address] [place] [address] [id number] 19 25 Nadya Low Self - patient is the insured Medical (General) History Medical History History ICD Code Substance use disorder Hepatitis C
--- OUTSIDE RECORDS SUMMARY | 2025-04-15 22:20 | XMS_ITS | Clinical Summary ---
Author Organization [facility] Address [address] [facility] [address] 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 Gender Identity Not on file Sexual Orientation Not on file Last Filed Vital Signs Vital Sign Reading Time Taken Comments Blood Pressure 106/56 01/06/2025 9:06 AM CDT Pulse 110 01/06/2025 9:06 AM CDT Temperature 36.4 C (97.6 F) 01/06/2025 9:06 AM CDT Respiratory Rate 16 01/06/2025 9:0 6 AM CDT Oxygen Saturation 99% 01/06/2025 9:06 [...] 05/11/2025 3:40 PM CDT Office Visit [facility] [address] [place] [address] Jose Cash MD [address] [phone] Health Maintenance Due Date Last Done Comments [...] BLOOD Routine 01/14/2025 8:14 AM CDT Miscarriage from Last 3 Months Results * HCG QUANTITATIVE, BLOOD (01/27/2025 8:09 AM CDT) Only the most recent of2 resultswithin the time period is included. HCG QUANT, BLOOD <5 mIU/mL [facility] Comment: Gestational Age Expected hCG values (mIU/mL) <1 Week: 5-50 1-2 Weeks: 50-500 2-3 Weeks: 100-5000 3-4 Weeks: 500-22527 4-5 Weeks: 1000-40055 5-6 Weeks: [address] 6-8 Weeks: [address] 2-3 Months: [address] The table above provides only a very [...] or approved by the FDA or the environmental field services technician of the assay. Test Performed at: [id number] [id number] [place] [address] Brian Gaxiola MD Blood 01/27/2025 8:09 AM CDT 01/27/2025 8:09 AM CDT us Jose Cash MD CHEMISTRY ORDERABLES Final Resul t [facility] [phone] [facility] [id number] [place] [address] from Last 3 Months Insurance [facility] [employer] MEDICAID Care Teams Senior Health Educator Relationship Specialty Start Date End Date Jose Cash MD [address] [place] [phone] PCP - General Family Practice 12/25/24
[2025-04-15 23:51] LABS: Hematocrit 47.4 % (36-47); Hemoglobin 16.20 g/dL (11.27-16.99); Mean Corpuscular HGB Conc 34.2 g/dL (30-55); Mean Corpuscular Hemoglobin 29.7 pg (27-33); Mean Corpuscular Volume 87.0 fl (85-98); Nucleated Red Blood Cells % 0 %; Platelet Count 298 10^3/cmm (157-399); Red Blood Count 5.45 10^6/uL (3.85-5.65); White Blood Count 5.49 10^3/uL (3.29-11.43)
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
[2025-04-16 00:11] LABS: Alanine Aminotransferase 146 U/L (0-33); Albumin Level 4.9 g/dL (3.5-5.2); Alcohol Level 287 mg/dL (0-10); Alkaline Phosphatase 81 U/L (35-105); Anion Gap 22.7 (5-19); Aspartate Amino Transferase 161 U/L (0-32); Blood Urea Nitrogen 6 mg/dL (6-20); Calcium 9.5 mg/dL (8.5-10.5); Carbon Dioxide 25 mmol/L (22-29); Chloride 103 mmol/L (98-107); Creatinine Clr Calc Pharmacy 120.2401; Globulin 4.3 g/dL (1.3-4.6); Glucose 95 mg/dL (65-115); Osmolality Calculated 301 mOsm/kg (285-295); Potassium 3.7 mmol/L (3.5-5.1); Sodium 147 mmol/L (136-145); Total Protein 9.2 g/dL (6.6-8.7)
[2025-04-16 00:12] LABS: Acetaminophen < 5.0 ug/mL (10-30); Salicylate < 0.3 mg/dL (3-10)
[2025-04-16 05:00] VITALS: BP 88/54; PULSE 94; O2SAT 95
--- NOTE | 2025-04-16 05:35 | PC.NURSE ---
attempted to bring pt to bathroom for urine sample. pt declined stating she cannot go. pt declined straight catheterization. RN educated pt that urine sample is required for medical clearance for psychiatric placement. pt verbalized understanding. pt provided water to drink.
--- NOTE | 2025-04-16 07:02 | ECG_ITS ---
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 Measurements Intervals [place] Rate: 76 P: 60 NH: 116 QRS: 63 QRSD: 87 T: 62 QT: 404 QTc: 455 Interpretive Statements SINUS RHYTHM WITH SHORT NH INTERVAL Compared to ECG 04/04/2025 01:09:15 Short NH interval now present Electronically Signed On 04-18-2025 14:14:05 CDT by Mignon Song M.D. [email or web address]
--- NOTE | 2025-04-16 07:09 | PC.NURSE ---
discussed need for urine sample with patient, pt requested water, nuclear test technician provided water.
[2025-04-16 07:55] LABS: Respiratory Syncytial Virus Ce NEGATIVE (Negative); SARS-CoV-2 PCR NEGATIVE (Negative)
--- NOTE | 2025-04-16 08:35 | PC.NURSE ---
pt provided with breakfast tray; c/o feeling nauseous and anxious; Dr. Matt notified
--- NOTE | 2025-04-16 08:37 | PC.NURSE ---
pt denies needing to give urine sample again, re-educated on need for transfer.
--- NOTE | 2025-04-16 08:56 | PC.NURSE ---
pt re-educated on need for urine sample; given another cup of water, informed pt to attempt to obtain urine sample. discussed catheter, pt denied.
[2025-04-16 09:21] LABS: Glucose Urine UA Negative (Normal); Nitrate Urine Positive (Negative); Specific Gravity, Urine 1.017 (1.005-1.030)
[2025-04-16 09:26] LABS: Add Urine Microscopic? YES
[2025-04-16 09:27] LABS: PCP Screen Urine Negative (Negative)
[2025-04-16 09:57] LABS: HCG Qualitative Urine. Negative (Negative)
[2025-04-16] MEDS: LORazepam 1 MG/0.5 ML injection 2 MG IM (11:33)
== END 2025-04-16 11:40 ==
PROVIDERS: Family Medicine; Emergency Provider Registered Nurse
DX: R45.851 Suicidal ideations (principal); S00.10XA Contusion of unspecified eyelid and periocular area, initial encounter; S01.21XA Laceration without foreign body of nose, initial encounter; Y09 Assault by unspecified means; Z11.52 Encounter for screening for COVID-19
CPT/HCPCS: 80053; 80306; 80307; 81001; 81025; 85025; 87077; 87086; 87186; 87637; 93005; 96372; 99284; J2060; J9999